=== PATIENT | female | born 1945 | race Caucasian/White ===

== ENCOUNTER → 2021-03-31 | Outpatient (CLI) | payer OTHER ==
--- NOTE | 2021-04-01 09:41 | P ---
[facility] [place] [address] PROCEDURE REPORT Name: ERNESTO ENNIS Room #: REG [facility].#: [id number] Admission: 03/31/21 Attend Phys: Sagar Easley Discharge: Date of : 49 Report #: [id number] THIS REPORT FOR: cc: Physician not on staff Physician not on staff Sagar Bolden MD ~ cc: Chantell Denny DATE OF SERVICE: 03/31/2021 PROCEDURE PERFORMED: Colonoscopy. HISTORY OF PRESENT ILLNESS: The patient is a 75-year-old female who presents today for screening colonoscopy. She denies any symptoms. No previous history of colonoscopy. No family history of colon cancer. DESCRIPTION OF PROCEDURE: The risks and benefits of the procedure were explained to the patient, those risks including but not limited to bleeding, perforation and the risk of sedation. She understood these risks and gave informed consent. Sedation was given using propofol per anesthesia. Next, a digital rectal exam was initially performed, which was normal. Next, using a standard Olympus colonoscope, the scope was placed in the patient's anus and advanced under direct vision to the cecum. The overall prep was good. The cecum and ileocecal valve were normal in appearance. Ascending, transverse, descending colon were normal. Multiple diverticula were noted in the sigmoid colon, otherwise normal. The rectal mucosa was normal. On retroflexion, no abnormalities were noted. The scope was then withdrawn and the procedure terminated. The patient tolerated the procedure well. IMPRESSION: 1. Sigmoid diverticulosis. 2. Otherwise, normal colonoscopy. RECOMMENDATIONS: Repeat colonoscopy in 10 years. Thank you for allowing me to participate in her care. <ELECTRONICALLY SIGNED> By: Sagar Bolden MD 04/01/21 [id number] [id number] Sagar Bolden MD /nt
--- NOTE | 2021-04-01 09:41 | P ---
[facility] [address] PROCEDURE REPORT Name: ERNESTO ENNIS Room #: REG [facility].#: [id number] Admission: 03/31/21 Attend Phys: Sagar Easley Discharge: Date of : 49 Report #: [id number] THIS REPORT FOR: cc: Physician not on staff Physician not on staff Sagar Bolden MD ~ cc: Bc Denny DATE OF SERVICE: 03/31/2021 PROCEDURE PERFORMED: Upper endoscopy. HISTORY OF PRESENT ILLNESS: The patient is a 75-year-old female with a history of dysphagia ongoing for several years. It has been getting progressively worse. She denies any heartburn. No previous history of endoscopy. She does not take any antacids. DESCRIPTION OF PROCEDURE: The risks and benefits of the procedure were explained to the patient, those risks including but not limited to bleeding, perforation and the risk of sedation. She understood these risks and gave informed consent. Sedation was given using propofol per anesthesia. Next, using a standard Olympus upper endoscope, the scope was placed in the patient's mouth and advanced under direct vision through the esophagus, stomach and into the second portion of the duodenum. The larynx was normal in appearance. The upper and mid esophagus was normal. In the distal esophagus, severe grade D erosive esophagitis with narrowing at the GE junction was noted. I did not proceed with dilation due to the esophagitis, possible short segment of Burton's was noted. Upon entering the stomach, a medium size hiatal hernia was noted. Overall, the gastric mucosa was normal. The pylorus was normal and patent. The duodenal bulb, first and second portion were all normal. The scope was then withdrawn and the procedure terminated. The patient tolerated the procedure well. IMPRESSION: 1. Severe grade D erosive esophagitis. 2. Medium size hiatal hernia. 3. Narrowing in the distal esophagus. RECOMMENDATIONS: 1. We will start daily PPI therapy and add liquid Carafate. We will repeat upper endoscopy in approximately four to six weeks times with dilation at that time also to rule out potential for Burton's esophagus. 2. Plan is for colonoscopy next today. [facility] [address] [place] [address] PROCEDURE REPORT Name: ERNESTO ENNIS ZARI Room #: REG [facility] Sanjiv.#: [id number] Admission: 03/31/21 Attend Phys: Sagar Easley Discharge: Date of : 49 Report #: [id number] Thank you for allowing me to participate in her care. <ELECTRONICALLY SIGNED> By: Sagar Bolden MD 04/01/21 0941 [id number] Sagar Bolden MD /nt
== END | disposition home or self-care (01) ==
LOC: GI 09:30
PROVIDERS: ATTEND Specialist
DX: Z12.11 Encounter for screening for malignant neoplasm of colon (principal); K57.30 Diverticulosis of large intestine without perforation or abscess without bleeding; K22.10 Ulcer of esophagus without bleeding; K44.9 Diaphragmatic hernia without obstruction or gangrene; K22.2 Esophageal obstruction
CPT/HCPCS: 62110; 62900